=== PATIENT | female | born 1995 | race Caucasian/White ===

== ENCOUNTER → 2023-11-15 | Outpatient (CLI) | payer OTHER, SELFPAY ==
[2023-11-18 17:07] LABS: Lamotrigine (Lamictal) Level 11.7 ug/mL (2.0-20.0)
== END | disposition home or self-care (01) ==
DX: G40.319 Generalized idiopathic epilepsy and epileptic syndromes, intractable, without status epilepticus (principal)
CPT/HCPCS: 36415; 82542

== ENCOUNTER 2024-06-27 08:44 | Emergency (ER) | payer OTHER, SELFPAY ==
[2024-06-27 08:45] VITALS: BP 113/62; PULSE 109; RESP 19; TEMP 37.1; O2SAT 97; BMI 21.7
[2024-06-27 09:21] LABS: Absolute Lymphocyte Count 2.86 X10^3/uL (0.83-4.51); Absolute Neutrophil Count 3.7 X10^3/uL (2.0-7.7); Basophil# 0.06 X10^3/uL; Basophil% 0.8 % (0-1); Eosinophil# 0.15 X10^3/uL; Hematocrit 40.9 % (37-47); Hemoglobin 13.1 g/dL (12.0-15.0); Lymphocyte # 2.86 X10^3/ul (0.83-4.51); Lymphocyte % 38.2 % (19-41); Mean Corpuscular Hgb 28.9 pg (27.0-32.0); Mean Corpuscular Volume 90.3 fL (81-99); Mean Platelet Vol. 10.4 fl (6.2-12.0); Monocyte# 0.73 X10^3/uL; Monocyte% 9.7 % (0-10); NRBC Flagged by Analyzer 0 % (0-5); Neutrophil # 3.66 X10^3/uL (2.7-7.7); Neutrophil % 48.9 % (47-70); Platelet Count 242 K/mm3 (150-450); RBC Distribution Width CV 14.1 % (11.6-14.6); RBC Distribution Width SD 46.9 fl (35.1-43.9); Red Blood Count 4.53 M/mm3 (4.2-5.4); White Blood Count 7.5 K/mm3 (4.4-11.0)
[2024-06-27 09:23] LABS: Internal QC Validated? YES +Cl - CLEAR BKGD; Pregnancy, Serum, hCG Quali. NEGATIVE Negative
--- NOTE | 2024-06-27 09:26 | EX.ED.DYSGE1 ---
HPI History of Present Illness Chief Complaint: Weakness Informant: patient Narrative Narrative: 28-year-old female presenting to the emergency room for concerns for potentially having a seizure. Patient states that she woke this morning around 0800 hrs. She states that 2 hours before that she was having twitching of her arms. She states that she has an epileptic and was concerned that she may be going to have a seizure. She states that she feels unable to focus and dizzy. Around 0015 hrs. last night she consumed approximately 25 mg of cannabis through an edible and then took her medications and went to bed. She was sent from urgent care for evaluation. She states that she recently ran out of her Celexa and was having withdrawal from that which she describes as a vibratory sensation in her forehead. She has not taken any Celexa now for about 2 weeks. Patient states that she has very poor with time so her timeline may be not right. She denies any vomiting or diarrhea. She states she has not had a seizure for 5 years. [facility] Medical History Anxiety and depression Epilepsy Allergy/AdvReac Type Severity Reaction Status Date / Time No Known Allergies Allergy Verified 06/27/24 08:52 Social History Smoking Status: Never smoker ROS ROS ED Constitutional Constitutional ED: Denies chills, fever(s) or weight loss Eyes Eyes: Denies change in vision or diplopia ENT ENT ED: Denies ear pain, rhinorrhea or sore throat Cardiovascular Cardiovascular: Reports palpitations; Denies chest pain, orthopnea or racing heartbeat Respiratory/Chest Respiratory/Chest: Denies cough, dyspnea or orthopnea Gastrointestinal Gastrointestinal: Denies abdominal pain, diarrhea, nausea or vomiting Genitourinary Genitourinary ED: Denies dysuria, hematuria or urinary frequency Musculoskeletal Musculoskeletal: Denies arthralgias or myalgias Integumentary Denies abscess or rash Neurologic Neurologic: Reports other Details: Dizziness myoclonic jerks of hands ; Denies headache(s) or weakness Psychiatric Psychiatric: Reports anxiety; Denies depression, suicidal ideation or suicidal thoughts Endocrine Endocrinology: Denies polydipsia, polyphagia or polyuria Allergic/Immunologic Allergic/Immunologic ED: Denies mouth swelling, tongue swelling or urticaria EXAM Physical Exam Const Vital Signs: 06/27/24 08:45 06/27/24 08:50 06/27/24 10:45 Temperature 98.8 F Temperature Source Temporal Pulse Rate 109 H 90 Respiratory Rate 19 H 14 Respiratory Effort Normal Respiratory Pattern Normal Blood Pressure 113/62 100/60 Blood Pressure Mean 79 73 Pulse Ox 97 99 Oxygen Delivery Method Room Air Room Air 06/27/24 11:54 Temperature 98 F Temperature Source Pulse Rate 81 Respiratory Rate 16 Respiratory Effort Respiratory Pattern Blood Pressure 99/70 Blood Pressure Mean 79 Pulse Ox 99 Oxygen Delivery Method Positive well nourished and well developed General Appearance ED: well developed HEENT Reports normocephalic, head/scalp atraumatic and moist mucous membranes Eyes PERRL and EOMs intact bilaterally Neck no lymphadenopathy, supple and no JVD Resp normal respiratory effort and clear to auscultation bilaterally Cardio regular rate, regular rhythm and no murmurs Rate: tachycardic GI normal to inspection, nondistended, normoactive bowel sounds and non-tender Palpation: soft Back/Spine no CVA tenderness and normal ROM Extremity normal to inspection General Extremety ED: Negative for edema General Extremity: Negative for edema Neuro oriented x3 and CN's II-XII intact bilaterally Sensorium / Orientation: alert Motor Exam: strength 5/5 throughout Psych Psych Narrative: Patient appears easily confused with simple questioning. I did not appreciate any myoclonic jerks while in the room. Mood & Affect: anxious; Negative for depressed or tearful Skin no rashes or lesions noted and no wounds MDM MDM MDM Narrative Medical decision making narrative: Differential diagnosis evidence epileptic aura cannabis ingestion Dehydration anemia infection cardiac dysrhythmia Patient appears in normal sinus rhythm on the monitor her blood work shows a potassium of 3.1 of unknown significance. She received p.o. potassium test is negative toxicology is positive for benzodiazepines and for cannabinoids. Patient was allowed to rest. She has not had any seizure activity. I believe her symptoms are most likely due to ingestion of the cannabis would recommend abstaining. Follow-up with primary care return History & Record Review Discussion w/independent historian: Patient Lab Data Attestation: I reviewed the patient's lab results. Labs: Laboratory Results - last 24 hr 06/27/24 06/27/24 09:07 10:07 WBC 7.5 RBC 4.53 Hgb 13.1 Hct 40.9 MCV 90.3 MCH 28.9 MCHC 32.0 RDW Std Deviation 46.9 H RDW Coeff of Alejandra 14.1 Plt Count 242 MPV 10.4 Immature Gran % (Auto) 0.400 Neut % (Auto) 48.9 Lymph % (Auto) 38.2 Hinds % (Auto) 9.7 Eos % (Auto) 2.0 Baso % (Auto) 0.8 Absolute Neuts (auto) 3.7 Absolute Lymphs (auto) 2.86 Nucleated RBC % 0 Sodium 140 Potassium 3.1 L Chloride 112 H Carbon Dioxide 23.0 Anion Gap 6 BUN 12 Creatinine 0.76 Estim Creat Clear Calc 93.47 Est GFR (MDRD) Af Amer 114 Est GFR (MDRD) Non-Af 94 BUN/Creatinine Ratio 15.7 Glucose 133 H Calcium 9.0 Serum , Qual NEGATIVE Urine Color Yellow Urine Clarity Clear Urine pH 6.5 Ur Specific Timber 1.015 Urine Protein Negative Urine Glucose (UA) Normal Urine Ketones Negative Urine Occult Blood Negative Urine Nitrite Negative Urine Bilirubin Negative Urine Urobilinogen Normal Ur Leukocyte Esterase Negative Urine RBC 0 SEEN Urine WBC 0-5 SEEN Ur Squamous Epith Cells 0-5 SEEN Amorphous Sediment 2+ Urine Bacteria 3+ Urine Mucus 0 SEEN Urine Opiates Screen NEGATIVE Urine Methadone Screen NEGATIVE Ur Barbiturates Screen NEGATIVE Ur Phencyclidine Scrn NEGATIVE Ur Amphetamines Screen NEGATIVE MDMA (Ecstasy) Screen NEGATIVE U Benzodiazepines Scrn POSITIVE H Urine Cocaine Screen NEGATIVE U Cannabinoids Screen POSITIVE H Ur Drug Screen Comment Ethyl Alcohol 5.0 Discharge Plan Triage Chief Complaint: Weakness ED Provider: Markos Pollard Dx/Rx/DC Orders Clinical Impression: Epilepsy, Hypokalemia, Ingestion of substance Instructions: ED Hypokalemia Primary Care Provider: Care Physician,No Primary Referrals: Care Physician,No Primary [Primary Care Provider] - Activity Restrictions/Additional Instructions: Please follow-up with primary care as needed and with your neurologist. Print Language: Montenegrin Disposition Disposition: Home, Self Care Discharge Date/Time: 06/27/24 12:04
[2024-06-27 09:29] LABS: Anion Gap 6 (5-15); BUN 12 mg/dL (7-18); BUN/Creat Ratio 15.7 RATIO (10-20); Chloride 112 mmol/L (98-107); Creatinine, Serum 0.76 mg/dL (0.55-1.02); EST Glomerular Filtration Rate 94 mL/min (>60); Est Glom Filt Rate - Afr Amer 114 mL/min (>60); Estimated Creatinine Clearance 93.47 ml/min; Glucose 133 mg/dL (74-106); Potassium 3.1 mmol/L (3.5-5.1); Sodium Level 140 mmol/L (136-145)
[2024-06-27] MEDS: Potassium Chloride Oral Tablet 20 MEQ 40 MEQ PO (10:04)
[2024-06-27 10:18] LABS: Mucous, Urine 0 SEEN /hpf (<or=2+); Red Blood Cells-Urine 0 SEEN /hpf (0-5)
[2024-06-27 10:26] LABS: Color, Urine Yellow (Yellow); Glucose, Dipstick Normal (Normal); Ketone-Dipstick Negative (Negative); Leukocyte Esterase-Dipstick Negative /ul (Negative); Nitrite-Dipstick Negative (Negative); Occult Blood-Urine Negative /ul (Negative); Protein-Dipstick Negative (Negative); Specific Gravity, Urine 1.015 (1.002-1.030); Urine Bilirubin Dipstick Negative (Negative); Urine Clarity Clear (Clear); Urine Urobilinogen Normal (Normal); Urine pH 6.5 (5.0 - 8.0)
[2024-06-27 10:34] LABS: Amorphous Sediment 2+; Bacteria 3+ /hpf (None Seen); Squamous Epithelial Cells - UA 0-5 SEEN /hpf (5-10); White Blood Cells 0-5 SEEN /hpf (0-5)
[2024-06-27 10:44] LABS: Amphetamine Urine VISTA NEGATIVE (<1000 ng/mL); Barbiturate Urine VISTA NEGATIVE (< 200 ng/mL); Benzodiazepine Urine VISTA POSITIVE (< 200 ng/mL); Cocaine Urine VISTA NEGATIVE (< 300 ng/mL); Ecstacy Urine VISTA NEGATIVE (< 500 ng/mL); Methadone Urine VISTA NEGATIVE (< 300 ng/mL); PCP Urine VISTA NEGATIVE (< 25 ng/mL); THC Urine VISTA POSITIVE (< 50 ng/mL); Vista UDS pH Range 6
[2024-06-27 10:45] VITALS: BP 100/60; PULSE 90; RESP 14; O2SAT 99
[2024-06-27 11:54] VITALS: BP 99/70; PULSE 81; RESP 16; TEMP 36.6; O2SAT 99
== END 2024-06-27 12:04 | disposition home or self-care (01) ==
PROVIDERS: Emergency Provider Emergency Medicine; Visit Provider Emergency Medicine
DX: R53.1 Weakness (principal); G40.909 Epilepsy, unspecified, not intractable, without status epilepticus; E87.6 Hypokalemia; T40.715A Adverse effect of cannabis, initial encounter
CPT/HCPCS: 80048; 80307; 81001; 82077; 84703; 85025; 99284; A4216